=== PATIENT | male | born 1975 | race Caucasian/White ===

== ENCOUNTER 2017-12-30 00:06 | Inpatient (IN) | payer OTHER ==
[~2017-12-30] VITALS: Ht 177.8 cm; Wt 95.3 kg
[~2017-12-30 00:06] MED LIST: IBUPROFEN 800800 M1 PO; KEFLEX500 MG PO
[2017-12-30 00:13] VITALS: BP 145/93
[2017-12-30] MEDS ORDERED: LISINOPRIL20 MG PO (00:18)
[2017-12-30 00:42] LABS: ABSOLUTE BASOPHILS 0.2 thou/uL (0.0-0.2); ABSOLUTE EOSINOPHILS 0.3 thou/uL (0.0-0.7); ABSOLUTE LYMPHOCYTES 3.8 thou/uL (0.8-5.3); ABSOLUTE MONOCYTES 1.4 thou/uL (0.0-1.2); ABSOLUTE NEUTROPHILS 11.2 thou/uL (1.6-8.1); BASOPHILS 0.9 %; EOSINOPHILS 1.6 %; HEMATOCRIT 48.6 % (42.0-52.0); HEMOGLOBIN 16.7 gm/dL (14.0-18.0); LYMPHOCYTES 22.8 %; MCHC 34.5 g/dL (28.0-37.0); MCV 89.9 fL (80.0-100.0); MONOCYTES 8.3 %; MPV 9.6 fl. (7.2-11.1); NUCLEATED RBCS 0 /100WBC; PLATELET COUNT* 254 thou/uL (150-400); POLYS 66.4 %; RBC 5.41 mil/uL (4.50-6.00); RDW-CV 12.7 % (10.5-14.5); WBC 16.8 thou/uL (4.0-11.0)
[2017-12-30 00:46] LABS: ANION GAP 8 mmol/L (7-16); BUN 12 mg/dL (7-18); CHLORIDE 102 mmol/L (98-107); CO2 26 mmol/L (21-32); CREATININE 1.1 mg/dL (0.6-1.3); GLUCOSE 137 mg/dL (70-99); SODIUM 136 mmol/L (136-145)
[2017-12-30 00:53] LABS: ALKALINE PHOSPHATASE 84 U/L (46-116); SGOT 23 U/L (15-37); SGPT 64 U/L (30-65); TOTAL BILIRUBIN 0.3 mg/dL (<0.1-1.0); TOTAL PROTEIN 7.7 g/dL (6.4-8.2); TROPONIN-I LEVEL <0.06 ng/mL (<0.06)
[2017-12-30 02:16] LABS: URINE BILIRUBIN NEGATIVE (Negative); URINE BLOOD NEGATIVE (Negative); URINE CLARITY CLEAR; URINE COLOR YELLOW; URINE GLUCOSE-RANDOM TRACE (Negative); URINE KETONES NEGATIVE (Negative); URINE LEUKOCYTES-REFLEX NEGATIVE (Negative); URINE NITRITE-REFLEX NEGATIVE (Negative); URINE PROTEIN NEGATIVE (Negative); URINE SPECIFIC GRAVITY 1.015 (1.005-1.030); URINE UROBILINOGEN 0.2 E.U./dl (0.2-1.0)
[2017-12-30 02:23] LABS: AMP/METHAMP Negative (Negative); BARBITURATES Negative (Negative); BENZODIAZEPINES Negative (Negative); COCAINE Negative (Negative); METHADONE Negative (Negative); OPIATES POSITIVE (Negative); PCP Negative (Negative); THC Negative (Negative)
[2017-12-30 03:02] LABS: CSF GLUCOSE 78 mg/dl (40-70); CSF PROTEIN 46.6 mg/dl (15-45)
[2017-12-30 03:10] LABS: CSF CLARITY CLEAR; CSF COLOR COLORLESS; CSF RBC 0 /mm3; CSF WBC 2 /mm3 (0-10); VOLUME 11 ml
[2017-12-30 05:13] VITALS: BP 110/74
[2017-12-30 07:03] VITALS: BP 130/74
[2017-12-30 07:07] LABS: HEMATOCRIT 45.8 % (42.0-52.0); HEMOGLOBIN 15.4 gm/dL (14.0-18.0); MCH 30.2 pg (26.0-34.0); MCHC 33.6 g/dL (28.0-37.0); MCV 89.9 fL (80.0-100.0); MPV 9.2 fl. (7.2-11.1); RBC 5.09 mil/uL (4.50-6.00); RDW-CV 13.2 % (10.5-14.5); WBC 15.8 thou/uL (4.0-11.0)
[2017-12-30 07:38] LABS: ALBUMIN 3.4 g/dL (3.4-5.0); CALCIUM 8.4 mg/dL (8.5-10.1); POTASSIUM 4.3 mmol/L (3.5-5.1); TOTAL BILIRUBIN 0.4 mg/dL (<0.1-1.0); TOTAL PROTEIN 6.8 g/dL (6.4-8.2)
[2017-12-30 08:00] VITALS: BP 134/79
[2017-12-30 16:26] VITALS: BP 118/77
[2017-12-30 21:00] VITALS: BP 132/82
[2017-12-31 00:36] VITALS: BP 168/78
[2017-12-31 04:16] LABS: HEMATOCRIT 45.9 % (42.0-52.0); HEMOGLOBIN 15.3 gm/dL (14.0-18.0); MCH 30.2 pg (26.0-34.0); MCHC 33.3 g/dL (28.0-37.0); MCV 90.7 fL (80.0-100.0); MPV 9.3 fl. (7.2-11.1); RBC 5.06 mil/uL (4.50-6.00); RDW-CV 12.8 % (10.5-14.5); WBC 19.5 thou/uL (4.0-11.0)
[2017-12-31 04:26] VITALS: BP 166/79
[2017-12-31 04:29] LABS: CALCIUM 8.9 mg/dL (8.5-10.1); CREATININE 1.1 mg/dL (0.6-1.3); MAGNESIUM 1.8 mg/dL (1.8-2.4); POTASSIUM 4.1 mmol/L (3.5-5.1)
[2017-12-31 08:00] VITALS: BP 138/80
--- NOTE | 2017-12-31 11:33 | CON ---
[address] [address] CONSULTATION Name: SOCORRO WHIPPLE Room: [address] IN M.R.#: [id number] Admission: 12/30/17 Attend Phys: Blas Brower Discharge: Date of : 79 Report #: [id number] THIS REPORT FOR: //name// CC: FAM physician/PCP Gavin Cota DATE OF SERVICE: 12/30/2017 ATTENDING PHYSICIAN: Dr. Cota. REASON FOR EVALUATION: Severe neck stiffness, headache and leukocytosis. HISTORY OF PRESENT ILLNESS: Chart reviewed, patient examined. This is a 42-year-old with a history of hypertension who was fairly healthy who had the onset of circumferential neck pain mostly limited again to the neck and occiput and not as much to the back. It is not clear if he has had fevers or if had sore throat. He had some difficulty swallowing at times. No nausea and no pulmonary-related complaints. No GI issues. He denies any other focal sites. He underwent lumbar puncture, which was unrevealing. White count as mentioned above was elevated at 16.8, although he is not anemic and had a monocytosis. Electrolytes were actually unremarkable. Glucose was mildly elevated at 137. Lactic acid was 0.7. Urinalysis was unremarkable. Drug screen was positive for opioids. CSF was clear and colorless. Cultures are pending. CTA of the head and neck was otherwise unremarkable. There is question of ethmoid sinus mucosal thickening. Blood cultures are sterile thus far. Empirically started on antibiotics including ceftriaxone, doxycycline and vancomycin. He is not encephalopathic. ALLERGIES: None known. MEDICATIONS: As noted above, dexamethasone, ibuprofen, nicotine, lisinopril, p.r.n. analgesics and antiemetics. PAST MEDICAL HISTORY: Hypertension and history of skin cancer. SOCIAL HISTORY: Actually chews tobacco. Occasional ethanol. FAMILY HISTORY: Noncontributory. REVIEW OF SYSTEMS: As above. PHYSICAL EXAMINATION: GENERAL: He is alert and cooperative. He is tracking well. He has no evidence of any encephalopathy. VITAL SIGNS: Temperature 97.9, pulse 68, respirations 16 and blood pressure 134/79. [place] [address] CONSULTATION Name: SOCORRO WHIPPLE Room: [address]#: [id number] Admission: 12/30/17 Attend Phys: Blas Brower Discharge: Date of : 79 Report #: [id number] SKIN: Warm. No rashes. He does have multiple tattoos. HEENT: Unremarkable. NECK: Stiff, although it is not, I believe, a true meningismus. No spinal or paraspinal tenderness. LUNGS: Generally clear to auscultation. HEART: Regular. ABDOMEN: Soft and is fairly firm, but I think that is more of muscles related. GENITOURINARY AND RECTAL: Deferred. LABORATORY DATA: Blood cultures are sterile thus far. Electrolytes: Sodium 138, potassium 4.3, chloride 103, bicarbonate is 29, anion gap of 6, BUN and creatinine 10 and 1.0 and glucose of ____. LFTs are unremarkable. Albumin 3.4 and total protein 6.8. CBC: ____, H and H is 15.4 and 45.8 and platelets of 237. CSF was clear and colorless, 2 white cells, 0 red cells, glucose of 78 and protein of 46.6. Urinalysis is unremarkable. ASSESSMENT: Stiff neck with headache in the setting of potential exposure. He does admit to mosquito bites, also has a scratch related to some equipment on his left wrist. He did have a tetanus shot roughly last 5 years ago. We will continue empiric antimicrobial therapy pending results. At this point, it is not clear whether it is infectious or not. We need to consider viral etiology as well. Discussed with the patient's spouse. We will follow. <ELECTRONICALLY SIGNED> By: Ang Guerin MD 12/31/17 1133 [id number] Guerin MD /nt
[2017-12-31 16:04] VITALS: BP 126/75
[2017-12-31 20:30] VITALS: BP 138/79
[2018-01-01 04:43] LABS: HEMATOCRIT 47.4 % (42.0-52.0); HEMOGLOBIN 15.6 gm/dL (14.0-18.0); MCH 30.1 pg (26.0-34.0); MCHC 32.9 g/dL (28.0-37.0); MCV 91.4 fL (80.0-100.0); MPV 9.7 fl. (7.2-11.1); RBC 5.18 mil/uL (4.50-6.00); RDW-CV 13.3 % (10.5-14.5)
[2018-01-01] MEDS ORDERED: CYCLOBENZAPRINE10 MG PO (07:56)
[2018-01-01 08:10] VITALS: BP 134/81
[2018-01-01 12:30] VITALS: BP 134/81
[2018-01-01 12:44] VITALS: BP 134/81
== END 2018-01-01 12:47 | disposition home or self-care (01) | DRG 552 ==
LOC: M.ERS 00:06 → M.TBA-ER 03:50 → M.ORTHSURG 03:50
PROVIDERS: Emergency Medicine; Internal Medicine; Physician Assistant; ADMIT Internal Medicine
PROC: 009U3ZX Drainage of Spinal Canal, Percutaneous Approach, Diagnostic (ICD-10-PCS; principal; 2017-12-30)
DX: S16.1XXA Strain of muscle, fascia and tendon at neck level, initial encounter (principal); R65.10 Systemic inflammatory response syndrome (SIRS) of non-infectious origin without acute organ dysfunction; F17.220 Nicotine dependence, chewing tobacco, uncomplicated; I10 Essential (primary) hypertension; R51 Headache; K11.8 Other diseases of salivary glands; R59.0 Localized enlarged lymph nodes; X58.XXXA Exposure to other specified factors, initial encounter; Y93.89 Activity, other specified; Y92.89 Other specified places as the place of occurrence of the external cause; Y99.8 Other external cause status; Z85.828 Personal history of other malignant neoplasm of skin; Z79.2 Long term (current) use of antibiotics; Z79.899 Other long term (current) drug therapy; Z82.49 Family history of ischemic heart disease and other diseases of the circulatory system; Z80.9 Family history of malignant neoplasm, unspecified